=== PATIENT | female | born 1970 | race Caucasian/White ===

== ENCOUNTER 2017-10-19 02:20 | Inpatient (IN) | payer MEDICARE ==
--- NOTE | 2017-10-19 03:21 | ED ---
Chest Pain HPI - General Chief Complaint: Chest Pain Stated Complaint: Chest Pain Time Seen by Provider: 10/19/17 02:30 Source: EMS Mode of arrival: EMS Limitations: no limitations - History of Present Illness Initial Comments: This patient is a 47-year-old woman with history of previous stent placement, who presented to outside hospital to be evaluated for chest pain. She states the pain had started a month ago and she was not really finding anything that relieves it, but it became worse in the morning on 10/18/2017. Complaint: chest pain Onset/Timin -: month(s) Onset: during rest Pain Location: substernal Pain Radiation: none Severity: severe Quality: other (crushing and burning) Consistency: constant Improves With: medication-other (Dilaudid) Worsens With: other (Taking her home medication) Treatments Prior to Arrival: aspirin, nitroglycerin, oxygen, other (Dilaudid) - Related Data Allergies Allergy/AdvReac Type Severity Reaction Status Date / Time Penicillins Allergy Rash/Hives Verified 10/19/17 02:37 Review of Systems ROS Statement: Those systems with pertinent positive or pertinent negative responses have been documented in the HPI. ROS Other: All systems not noted in ROS Statement are negative. Constitutional: Denies: fever, chills Respiratory: Denies: cough, dyspnea Cardiovascular: Reports: chest pain. Denies: palpitations, orthopnea, edema, syncope Gastrointestinal: Denies: abdominal pain, nausea, vomiting Musculoskeletal: Denies: back pain Skin: Denies: rash Neurological: Reports: headache. Denies: weakness, numbness EKG Findings - EKG Comments: EKG Findings:: The patient's EKG does appear to show elevation in the ST segments lead V2 of less than 1 mm - EKG Results: EKG: interpreted by ERMD, sinus rhythm (Rate approximate 77 bpm), normal axis, normal QRS Past Medical History Past Medical History: Chest Pain / Angina, Fibromyalgia, GERD/Reflux, Renal Disease Additional Past Medical History / Comment(s): Lupus, rhaynauds, Sjrogens syndrome, chronic pain, headaches, History of Any Multi-Drug Resistant Organisms: None Reported Past Surgical History: Heart Catheterization With Stent Past Psychological History: Anxiety, Depression Smoking Status: Current every day smoker Past Alcohol Use History: None Reported Past Drug Use History: None Reported General Exam Limitations: no limitations General appearance: alert, in no apparent distress Head exam: Present: atraumatic, normocephalic Eye exam: Present: normal appearance. Absent: scleral icterus, conjunctival injection ENT exam: Present: normal oropharynx Neck exam: Present: normal inspection, full ROM Respiratory exam: Present: normal lung sounds bilaterally, chest wall tenderness. Absent: respiratory distress, wheezes, rales, rhonchi, stridor, accessory muscle use, decreased breath sounds, prolonged expiratory Cardiovascular Exam: Present: regular rate, normal rhythm, normal heart sounds. Absent: systolic murmur, diastolic murmur, rubs, gallop GI/Abdominal exam: Present: soft. Absent: distended, tenderness, guarding, rebound, rigid, mass Extremities exam: Present: normal inspection, normal capillary refill. Absent: pedal edema, calf tenderness Back exam: Present: normal inspection. Absent: CVA tenderness (R), CVA tenderness (L) Skin exam: Present: warm, dry, intact, normal color. Absent: rash Course Vital Signs 10/19/17 10/19/17 02:29 05:05 Temperature 100.0 F H 97.7 F Pulse Rate 77 77 Respiratory 18 18 Rate Blood Pressure 131/92 116/70 O2 Sat by Pulse 96 98 Oximetry Chest Pain MDM - MDM Patient's 47-year-old woman with borderline troponins and with EKG with a concerning changes in V2. Case discussed with the blending line attendant's will see the patient. IV heparin continued. Patient chest pain-free following morphine. Disposition Clinical Impression: Chest pain, Acute coronary syndrome Disposition: ADMITTED IP TO THIS HOSP Condition: Fair
[2017-10-19] MEDS ORDERED: NITROGLYCERIN SL TABS 0.4 MG TAB SUBLINGUAL PRN ×2 (05:41→09:09)
[2017-10-19] MEDS ORDERED: ENOXAPARIN 80 MG/0.8 ML SYRINGE SQ STA (05:44)
[2017-10-19] MEDS ORDERED: MORPHINE SULFATE 4 MG/ML SYRINGE IV STA (05:57)
[2017-10-19] MEDS: HEPARIN SODIUM,PORCINE/D5W PMX 25,000 UNIT in DEXTROSE/WATER 1 500ML.BAG IV SCH (06:12)
[2017-10-19 06:23] LABS: Basophils % (A) 0 %; Eosinophils % (A) 1 %; HGB 12.8 gm/dL (11.4-16.0); Lymphocytes % (A) 28 %; MCH 27.8 pg (25.0-35.0); MCHC 32.8 g/dL (31.0-37.0); MCV 84.7 fL (80.0-100.0); Mean Platelet Volume 7.4; Monocytes # (A) 0.7 k/uL (0-1.0); Monocytes % (A) 10 %; Neutrophils # (A) 4.2 k/uL (1.3-7.7); Neutrophils % (A) 58 %; Platelet Count 307 k/uL (150-450); WBC 7.2 k/uL (3.8-10.6)
[2017-10-19 06:45] VITALS: RESP 16
[2017-10-19 06:48] LABS: INR 0.9 (<1.2); Partial Thromboplastin Time 20.7 sec (22.0-30.0); Prothrombin Time 9.4 sec (9.0-12.0)
[2017-10-19] MEDS ORDERED: MORPHINE SULFATE 4 MG/ML SYRINGE IV PRN (06:52)
[2017-10-19] MEDS ORDERED: SODIUM CHLORIDE 0.9% 1,000 ML in EMPTY BAG 1 BAG IV ONE (09:09)
[2017-10-19] MEDS ORDERED: ASPIRIN 325 MG TAB PO STA (09:09)
[2017-10-19] MEDS ORDERED: ALPRAZolam 0.25 MG TAB PO PRN (09:09)
[2017-10-19] MEDS ORDERED: ATORVASTATIN 80 MG TAB PO STA (09:09)
[2017-10-19] MEDS ORDERED: ALPRAZolam 0.5 MG TAB PO PRN (09:09)
[2017-10-19 09:15] LABS: Creatine Kinase MB 0.8 ng/mL (0.0-2.4)
[2017-10-19 09:18] LABS: Troponin I 0.08 ng/mL (0.000-0.034)
[2017-10-19] MEDS: METOPROLOL TARTRATE 12.5 MG TAB PO SCH ×2 (10:36→20:14)
[2017-10-19] MEDS: ASPIRIN 81 MG PO SCH (10:37)
[2017-10-19 11:22] VITALS: BMI 27.3
[2017-10-19] MEDS ORDERED: MIDAZOLAM 2 MG/2 ML VIAL ONE (13:08)
[2017-10-19] MEDS ORDERED: diphenhydrAMINE 50 MG/ML 1 ML VIAL ONE (13:08)
[2017-10-19] MEDS ORDERED: IV FLUID CONTINUATION 200 ML IV ONE (13:19)
[2017-10-19] MEDS: MIDAZOLAM 2 MG/2 ML VIAL IVP ONE ×2 (13:19→13:26)
[2017-10-19] MEDS ORDERED: diphenhydrAMINE 50 MG/ML 1 ML VIAL IVP ONE (13:19)
[2017-10-19] MEDS ORDERED: LIDOCAINE 2% INJ 20 MG/ML SQ ONE (13:25)
[2017-10-19] MEDS ORDERED: MORPHINE SULFATE 4 MG/ML SYRINGE ONE (13:29)
--- NOTE | 2017-10-19 13:29 | CONS ---
CONSULTATION This is a 47-year-old lady with a history stenting of her coronary arteries performed in the past. These details are unavailable. She came into the [place] [facility] with almost a 3-week history of ongoing episodes of chest pressure and tightness. She also complained of having some uncomfortable feeling in her chest when she does physical activity and these symptoms got worse yesterday. After arrival in the emergency room at [place], she was then transferred here because of ongoing symptoms and there was a mild elevation of troponin. At the time of my evaluation, she is more comfortable, but there is an increase in troponin. She has history of prior PCI, details of which are not available. PAST MEDICAL HISTORY: 1. CAD with stenting of one of her coronary arteries, details unclear. 2. History of systemic lupus erythematosus, unclear information, unverified diagnosis. 3. She also has fibromyalgia. 4. Also some chronic pain syndrome and headaches. 5. 6. MEDICATIONS: At home include Ativan, Effexor, , Protonix, she does not take an aspirin. She does not take any Plavix and has no statins. ALLERGIES: PENICILLIN. REVIEW OF SYSTEMS: Remarkable for exertional chest tightness occurring more frequently. Nausea. Also has multiple nonspecific sharp pains in the chest and abdomen as well. She has some nausea from time to time. No hematemesis, melena, genitourinary symptoms, fever with chills or cough with expectoration. LABORATORY DATA: Revealed that we have 2 sets of troponins here 0.06 and 0.08, and there was also elevation of troponin in the [facility]. PHYSICAL EXAMINATION: VITAL SIGNS: The blood pressure is 118/70, pulse rate is 70 per minute and regular. HEENT: Unremarkable. Fundus was not examined by me. NECK: Supple. There is no JVD. I do not hear a carotid bruit. There is no thyromegaly. HEART exam reveals S1, S2 heard normally. There is no significant rub, murmur or gallop. LUNGS are clear. ABDOMEN is soft, nontender. EXTREMITIES: Lower extremities reveal normal pulses. No edema. CENTRAL NERVOUS SYSTEM is normal. EKG revealed a sinus mechanism with evidence of old inferior LA and also QS pattern in precordial leads suggestive of old anteroseptal LA. There were isolated PVCs but no acute changes. IMPRESSION: 1. Probable non ST elevation myocardial infarction in a patient with known prior PCI. 2. Fibromyalgia. 3. History of lupus, details unclear. 4. History of PCI a few years ago details unavailable. RECOMMENDATIONS: Patient was supposed to be given a dose of Lovenox yesterday but this did not happen instead she is on a heparin drip. We will continue the heparin drip. I will add beta blockers and statin agents and aspirin 81 mg daily. I am recommending coronary angiography given her symptoms and EKG changes and also elevated troponin. Rationale, risks, benefits and options were explained to the patient. She understands all details and wishes to proceed with the procedure. MMODL / IJN: [id number] /
[2017-10-19] MEDS ORDERED: MORPHINE SULFATE 4 MG/ML SYRINGE IVP ONE (13:31)
[2017-10-19] MEDS ORDERED: SODIUM CHLORIDE 0.9% 1,000 ML IV ONE (13:32)
[2017-10-19] MEDS ORDERED: IOPAMIDOL-370 100ML BTL INJ ONE (13:39)
[2017-10-19] MEDS ORDERED: NITROGLYCERIN SL TABS 0.4 MG TAB SUBLINGUAL ONE (13:41)
[2017-10-19] MEDS ORDERED: RX INFO: IV CONTRAST WAS GIVEN 1 EACH MISC MISCELLANE PRN (13:54)
[2017-10-19] MEDS ORDERED: MD COMMUNICATION TO PHARMACY 1 EACH MISC PO ONE (14:27)
[2017-10-19] MEDS: SODIUM CHLORIDE 0.9% 1,000 ML IV SCH (14:55)
--- NOTE | 2017-10-19 15:48 | P.GSCN ---
History of Present Illness Consult date: 10/19/17 Reason for Consult: Severe coronary artery disease with left main disease, non-STEMI, recommendations for surgical revascularization. Requesting physician: Tho José History of present illness: This is a 47-year-old female patient who follows with Dr. Alexis Fan on an outpatient basis. She has a previous medical history of myocardial infarction at 40 years old with stent placement to the LAD and RCA, hypertension , hyperlipidemia, current smoker with vape, lupus, fibromyalgia, Raynauds disease, GERD, depression, marijuana oil use, acute kidney injury without dialysis requirement, seizures, syncope, and significant family history of early coronary artery disease with several men in her family dying before the age of 50. She was having chest pain intermittently over the previous month which she initially thought was pleurisy and she treated with prednisone she had at home. The chest pain became intense enough in the last 24 hours however that she felt she needed to report to the emergency room. She went to [facility] emergency room with complaints of severe crushing, burning, substernal chest pain without radiation and with mild nausea. It was improved with IV Dilaudid at [facility]. Troponins were drawn which were mildly elevated and the patient was transported to [facility] for further evaluation and treatment. She was admitted, started on heparin drip, troponins continue to be elevated although her EKG demonstrated no acute changes , and she was ruled in for non-STEMI. She was taken to the cardiac labor economist this morning by Dr. Joshi and was found to have left main stenosis 80%, patent RCA stent, proximal LAD stenosis 100%, PDA stenosis of 70% at the ostium, and circumflex artery with 80% stenosis. Left ventriculogram was completed which demonstrated an ejection fraction of 40%. Dr. José from cardiothoracic surgery was consulted regarding recommendations for surgical revascularization. Review of Systems 14 point review systems was completed and was negative except as noted. - Cardiovascular Reports as per HPI, Reports chest pain, Reports lightheadedness, Reports syncope - Musculoskeletal Musculoskeleta Comment(s): Chronic pain all over from fibromyalgia Past Medical History Past Medical History: Coronary Artery Disease (CAD), Chest Pain / Angina, Fibromyalgia, GERD/Reflux, Hyperlipidemia, Hypertension, Myocardial Infarction ( [place]), Renal Disease, Seizure Disorder, Syncope Additional Past Medical History / Comment(s): Lupus, rhaynauds, Sjrogens syndrome, chronic pain, headaches, seizures & kidney failure in 1999 now resolved, HELPP syndrome during History of Any Multi-Drug Resistant Organisms: None Reported Past Surgical History: Heart Catheterization With Stent, Hernia Repair, Hysterectomy Additional Past Surgical History / Comment(s): 2009 2 stents to LAD, hysterectomy, double umbilical hernia repair, pin in right ankle, cyst removal on right ovary Past Anesthesia/Blood Transfusion Reactions: No Reported Reaction Date of Last Stent Placement:: 2009 Past Psychological History: Depression Smoking Status: Current every day smoker Past Alcohol Use History: None Reported Past Drug Use History: Marijuana Additional Drug Use History / Comment(s): Uses marijuana oil - Past Family History Mother Family Medical History: Diabetes Mellitus Father Family Medical History: Coronary Artery Disease (CAD) Medications and Allergies Home Medications Medication Instructions Recorded Confirmed Type LORazepam [Ativan] 0.5 mg PO TID PRN 10/19/17 10/19/17 History Nitroglycerin [Nitroglycerin 1 spray TRANSLINGU DAILY PRN 10/19/17 10/19/17 History 400MCG [place]] Pantoprazole Sodium [Protonix] 80 mg PO HS 10/19/17 10/19/17 History Pilocarpine HCl [Salagen] 5 mg PO TID PRN 10/19/17 10/19/17 History Topiramate [Topamax] 100 mg PO HS 10/19/17 10/19/17 History Venlafaxine HCl ER [Effexor Xr] 150 mg PO HS 10/19/17 10/19/17 History rOPINIRole HCL [Requip] 3 mg PO HS 10/19/17 10/19/17 History traZODone HCL 300 mg PO HS 10/19/17 10/19/17 History Allergies Allergy/AdvReac Type Severity Reaction Status Date / Time Penicillins Allergy Rash/Hives Verified 10/19/17 11:25 Surgical - Exam Vital Signs Temp Pulse Resp BP Pulse Ox 100.0 F H 77 18 131/92 96 10/19/17 02:29 10/19/17 02:29 10/19/17 02:29 10/19/17 02:29 10/19/17 02:29 - General well developed, well nourished, no distress, no pain - Eyes PERRL, normal ocular movement - ENT no hearing loss, no congestion - Neck no masses, no bruits, trachea midline - Respiratory Lungs sounds clear bilaterally. Respirations even, nonlabored. Currently on room air with oxygen saturation 98%. No chest wall deformities. - Cardiovascular S1, S2 present. Regular rate and rhythm, sinus rhythm on telemetry. Palpable peripheral pulses bilaterally. No edema present. No calf pain or tenderness noted. Few varicosities noted to right lower extremity. - Abdomen Abdomen: soft, non tender, bowel sounds - Genitourinary Deferred - Rectum Deferred - Integumentary no rash, no growths - Neurologic normal coordination, normal sensation - Psychiatric oriented to time, oriented to person, oriented to place, speech is normal, memory intact Results - Labs 10/19/17 06:08 Abnormal Lab Results - Last 24 Hours (Table) 10/19/17 10/19/17 10/19/17 Range/Units 02:48 06:08 08:15 APTT 20.7 L (22.0-30.0) sec Troponin I 0.065 H* 0.080 H* (0.000-0.034) ng/mL - Imaging EKG: image reviewed Additional studies: Cardiac catheterization films were reviewed. Assessment and Plan (1) Coronary artery disease Current Visit: Yes Status: Chronic Code(s): I25.10 - ATHSCL HEART DISEASE OF [place] CORONARY ARTERY W/O ANG PCTRS SNOMED Code(s): 68535323 (2) Left main coronary artery disease Current Visit: Yes Status: Chronic Code(s): I25.10 - ATHSCL HEART DISEASE OF [place] CORONARY ARTERY W/O ANG PCTRS SNOMED Code(s): 683458735 (3) Previous myocardial infarction older than 8 weeks Current Visit: No Status: Resolved Code(s): I25.2 - OLD MYOCARDIAL INFARCTION SNOMED Code(s): 9620377 (4) History of heart artery stent Current Visit: Yes Status: Chronic Code(s): Z95.5 - PRESENCE OF CORONARY ANGIOPLASTY IMPLANT AND GRAFT SNOMED Code(s): 581788657 (5) Hypertension Current Visit: Yes Status: Chronic Code(s): I10 - ESSENTIAL (PRIMARY) HYPERTENSION SNOMED Code(s): 22555566 (6) Hyperlipidemia Current Visit: Yes Status: Chronic Code(s): E78.5 - HYPERLIPIDEMIA, UNSPECIFIED SNOMED Code(s): 58688345 (7) GERD (gastroesophageal reflux disease) Current Visit: Yes Status: Chronic Code(s): K21.9 - GASTRO-ESOPHAGEAL REFLUX DISEASE WITHOUT ESOPHAGITIS SNOMED Code(s): 743137313 (8) Lupus Current Visit: Yes Status: Chronic Code(s): L93.0 - DISCOID LUPUS ERYTHEMATOSUS SNOMED Code(s): 146688180 (9) Depression Current Visit: Yes Status: Chronic Code(s): F32.9 - MAJOR DEPRESSIVE DISORDER, SINGLE EPISODE, UNSPECIFIED SNOMED Code(s): 42895722 (10) History of kidney injury Current Visit: No Status: Resolved Code(s): Z87.828 - PERSONAL HISTORY OF OTH (HEALED) PHYSICAL INJURY AND TRAUMA SNOMED Code(s): 041837880 (11) History of seizure disorder Current Visit: No Status: Resolved Code(s): Z86.69 - PERSONAL HISTORY OF DIS OF THE NERVOUS SYS AND SENSE ORGANS SNOMED Code(s): 415860095 (12) History of syncope Current Visit: No Status: Resolved Code(s): Z87.898 - PERSONAL HISTORY OF OTHER SPECIFIED CONDITIONS SNOMED Code(s): 639299012488968 (13) Family history of premature coronary artery disease Current Visit: Yes Status: Chronic Code(s): Z82.49 - FAMILY HX OF I[place]HE[place] HEART DIS AND OTH DIS OF THE CIRC SYS SNOMED Code(s): 015039501 (14) Tobacco dependence Current Visit: Yes Status: Chronic Code(s): F17.200 - NICOTINE DEPENDENCE, UNSPECIFIED, UNCOMPLICATED SNOMED Code(s): 66896720 Plan: The patient was seen and examined at the bedside with Dr. José. Chart/ diagnostics/heart catheterization films were reviewed. We recommend continuing aspirin, statin, beta lis, heparin drip. We strongly encouraged the patient to quit smoking, including vaping. Preoperative testing was initiated. Preoperative teaching was initiated with the patient and her , all questions were answered. At this point time we recommend urgent coronary artery bypass grafting with the left internal mammary artery, right internal mammary artery, possible radial artery harvesting, and endoscopic vein harvesting. All risks and benefits were explained in detail to the patient and her . All questions were answered. They consent to proceed with surgery. We will tentatively board the patient for October [address] Mclaughlin, pending the outcome of preoperative testing. More recommendations to follow. Thank you Dr. Joshi for this consult. We look forward to working with you in the care of your patient. Time with Patient: Greater than 30
[2017-10-19] MEDS: MORPHINE SULFATE 4 MG/ML SYRINGE IV PRN ×2 (15:49→23:25)
[2017-10-19 16:04] LABS: Creatine Kinase MB 0.4 ng/mL (0.0-2.4)
[2017-10-19 16:06] LABS: Troponin I 0.066 ng/mL (0.000-0.034)
--- NOTE | 2017-10-19 16:56 | P.CNPUL ---
History of Present Illness Consult date: 10/19/17 Reason for consult: other Chief complaint: Coronary artery disease History of present illness: Pulmonary consult dated 10/19/2017 This a 47-year-old female with a history of coronary artery disease with previous stent placement. She presented to an outside hospital for chest pain. She apparently was discovered have significant CAD and the patient's being evaluated for possible bypass grafting. The plan would be to do the bypass on Friday which is the day after . The patient is currently not having any chest pain. She does have a history of previous tobacco use and she does currently vape. She does have a history of lupus though she does not take any medications for her lupus at this time. She currently denies any shortness of breath cough wheezing phlegm production hemoptysis. No chest pain or chest pressure currently. No palpitations. Currently, there is no calf report to refer to. She apparently does have a history of CAD with stenting. She also has a history of lupus and fibromyalgia with chronic pain syndrome. She apparently also has a history of Raynauds disease as well as Sjogren's syndrome. Review of Systems A 12 point review of system is positive for chest pain. She denies other complaints and she is not having any chest pain at the current time. Past Medical History Past Medical History: Coronary Artery Disease (CAD), Chest Pain / Angina, Fibromyalgia, GERD/Reflux, Hyperlipidemia, Hypertension, Myocardial Infarction ( [place]), Renal Disease, Seizure Disorder, Syncope Additional Past Medical History / Comment(s): Lupus, rhaynauds, Sjrogens syndrome, chronic pain, headaches, seizures & kidney failure in 1999 now resolved, HELPP syndrome during History of Any Multi-Drug Resistant Organisms: None Reported Past Surgical History: Heart Catheterization With Stent, Hernia Repair, Hysterectomy Additional Past Surgical History / Comment(s): 2009 2 stents to LAD, hysterectomy, double umbilical hernia repair, pin in right ankle, cyst removal on right ovary Past Anesthesia/Blood Transfusion Reactions: No Reported Reaction Date of Last Stent Placement:: 2009 Past Psychological History: Depression Smoking Status: Current every day smoker Past Alcohol Use History: None Reported Past Drug Use History: Marijuana Additional Drug Use History / Comment(s): Uses marijuana oil - Past Family History Mother Family Medical History: Diabetes Mellitus Father Family Medical History: Coronary Artery Disease (CAD) Medications and Allergies Home Medications Medication Instructions Recorded Confirmed Type LORazepam [Ativan] 0.5 mg PO TID PRN 10/19/17 10/19/17 History Nitroglycerin [Nitroglycerin 1 spray TRANSLINGU DAILY PRN 10/19/17 10/19/17 History 400MCG [place]] Pantoprazole Sodium [Protonix] 80 mg PO HS 10/19/17 10/19/17 History Pilocarpine HCl [Salagen] 5 mg PO TID PRN 10/19/17 10/19/17 History Topiramate [Topamax] 100 mg PO HS 10/19/17 10/19/17 History Venlafaxine HCl ER [Effexor Xr] 150 mg PO HS 10/19/17 10/19/17 History rOPINIRole HCL [Requip] 3 mg PO HS 10/19/17 10/19/17 History traZODone HCL 300 mg PO HS 10/19/17 10/19/17 History Allergies Allergy/AdvReac Type Severity Reaction Status Date / Time Penicillins Allergy Rash/Hives Verified 10/19/17 11:25 Physical Exam Osteopathic Statement: *. No significant issues noted on an osteopathic structural exam other than those noted in the History and Physical/Consult. Vitals: Vital Signs Temp Pulse Pulse Resp BP BP Pulse Ox 10/19/17 15:20 73 16 99/67 98 10/19/17 14:50 76 110/76 97 10/19/17 14:35 74 113/83 99 10/19/17 14:20 74 16 133/71 99 10/19/17 14:05 98 16 128/69 99 10/19/17 12:10 98 F 73 16 101/65 98 10/19/17 10:05 98 F 70 16 104/71 99 10/19/17 06:44 97.4 F L 73 16 123/84 99 10/19/17 05:05 97.7 F 77 18 116/70 98 10/19/17 02:29 100.0 F H 77 18 131/92 96 Intake and Output 10/19/17 10/19/17 10/19/17 06:59 14:59 22:59 Intake Total 340.76 Balance 340.76 Intake: IV 170 Intake, IV Titration 170.76 Amount Heparin Sodium,Porcine/ 170.76 D5w Pmx 25,000 unit In Dextrose/Water 1 500ml. bag @ 12 UNITS/KG/HR 19. 59 mls/hr IV .Q24H [facility] Rx #:[id number] Other: Weight 81.647 kg 81.647 kg No acute distress, oriented 3. HEENT examination is grossly unremarkable. Mucous membranes are moist. No oral lesions. Neck supple. Full range of motion. No adenopathy thyromegaly or neck vein distention. Cardiovascular examination reveals regular rhythm rate. S1-S2 normal. No S3 or S4. No discernible murmur noted. Lungs reveal clear breath sounds. Her sounds are equal bilaterally. No adventitious lung sounds including wheezes rhonchi or crackles. Abdomen soft bowel sounds are heard. No masses or tenderness. Extremities are intact. No cyanosis clubbing or edema. Skin is without rash or lesion. Neurologic examination is brief but nonfocal. Results - Laboratory Findings CBC and BMP: 10/19/17 06:08 PT/INR, D-dimer PT 9.4 sec (9.0-12.0) 10/19/17 06:08 INR 0.9 (<1.2) 10/19/17 06:08 Abnormal lab findings: Abnormal Labs 10/19/17 10/19/17 10/19/17 02:48 06:08 08:15 APTT 20.7 L Troponin I 0.065 H* 0.080 H* 10/19/17 14:54 APTT Troponin I 0.066 H* - Diagnostic Findings Chest x-ray: image reviewed (Labs x-rays and medications are reviewed.) Assessment and Plan Assessment: Assessment Coronary artery disease with anticipated bypass grafting on October 21. Catheterization revealed a left main stenosis of 80% and a patent RCA stent proximal LAD stenosis 100% PDA stenosis of 70% and circumflex artery stenosis of 80%. Ejection fraction by ventriculogram was 40%. Non-ST segment elevation myocardial infarction. History of lupus, currently on no medications History of angina Previous history of stent placement for CAD, right coronary artery. History of fibromyalgia History of GERD History of Sjogren syndrome History of Raynaud's disease Plan: Plan dated 10/19/2017 The patient will need a bedside spirometry. We counseled her about the importance of not using E cigarettes anymore. She just stopped smoking cigarettes many years back. I explained my role in the care of that she will receive in the ICU. We will make sure the nurses educate her about the importance of incentive spirometry. Additional recommendations and suggestions to follow. Time with Patient: Greater than 30
--- NOTE | 2017-10-19 17:16 | US ---
EXAMINATION TYPE: US carotid duplex BILAT DATE OF EXAM: 10/19/2017 COMPARISON: NONE CLINICAL HISTORY: Pre CABG. EXAM MEASUREMENTS: RIGHT: Peak Systolic Velocity (PSV) cm/sec ----- Right CCA: 70.6 ----- Right ICA: 93.3 ----- Right ECA: 87.9 ICA/CCA ratio: 1.3 RIGHT: End Diastole cm/sec ----- Right CCA: 21.7 ----- Right ICA: 20.8 ----- Right ECA: 24.5 LEFT: Peak Systolic Velocity (PSV) cm/sec ----- Left CCA: 85.6 ----- Left ICA: 76.8 ----- Left ECA: 267.6 ICA/CCA ratio: 0.9 LEFT: End Diastole cm/sec ----- Left CCA: 43.9 ----- Left ICA: 37.3 ----- Left ECA: 44.3 VERTEBRALS (direction of flow): Right Vertebral: Antegrade Left Vertebral: Antegrade Rhythm: Normal No significant stenosis seen. Elevated left ECA velocity IMPRESSION: 1. No significant flow-limiting stenosis common carotid arteries into the internal carotid arteries. 2. There is stenosis at the left external carotid artery. Criteria for Assigning % of Stenosis / Diameter reduction (Estimation based on the indirect measurements of the internal carotid artery velocities (ICA PSV). 1. Normal (no stenosis)=ICA PSV < 125 cm/s: ratio < 2.0: ICA EDV<40 cm/s. 2. Less than 50% stenosis=ICA PSV < 125 cm/s: ratio < 2.0: ICA EDV<40 cm/s. 3. 50 to 69% stenosis=ICA PSV of 125 to 230 cm/s: ration 2.0 ? 4.0: ICA EDV 40-100 cm/s. 4. Greater than 70% stenosis to near occlusion= ICA PSV > 230 cm/s: ratio > 4.0: ICA EDV > 100 cm/s. 5. Near occlusion= ICA PSV velocities may be low or undetectable: variable ratio and ICA EDV. 6. Total occlusion=unable to detect flow.
[2017-10-19 18:23] LABS: Appearance,Urine Clear (Clear); Bilirubin,Urine Negative (Negative); Blood,Urine Trace (Negative); Color,Urine Light Yellow; Glucose,Urine (UA) Negative (Negative); Ketones,Urine Negative (Negative); Leukocyte Esterase,Urine Large (Negative); Nitrite,Urine Negative (Negative); PH, Urine 6.5 (5.0-8.0); Protein,Urine Negative (Negative); RBC,Urine 2 /hpf (0-5); Squamous Epithelial Cell,Urine 2 /hpf (0-4); Urobilinogen,Urine <2.0 mg/dL (<2.0); WBC,Urine 2 /hpf (0-5)
--- NOTE | 2017-10-19 18:34 | P.HPIM ---
History of Present Illness this is a pleasant 47 yo F with pmh of HTN, HLP, CAD, Fibromyalgia, seizure , GERD, HLP, syncope, Raynauds disease ,Sjogren's syndrome and Lupus but not on therapy who presents with signs and symptoms of chest pain of two days duration , the pain is central , associated with some dyspnea , pt was found to have positive troponin 0.6, 0.8,0.6 , pt was taking to cardiac cath today and it showed three vessel disease and main stem coronary art disease , and she might needs cath on Friday. pt currently denies any chest pain , no palpitation or dyspnea. pt does not have any fever. carotid doppler done: no significant stenosis, Review of Systems CONSTITUTIONAL: No fever, no malaise, no fatigue. HEENT: No recent visual problems or hearing problems. Denied any sore throat. CARDIOVASCULAR: No orthopnea, PND, no palpitations, no syncope. PULMONARY: No shortness of breath, no cough, no hemoptysis. GASTROINTESTINAL: No diarrhea, no nausea, no vomiting, no abdominal pain. Normoactive bowel sounds. NEUROLOGICAL: No headaches, no weakness, no numbness. HEMATOLOGICAL: Denies any bleeding or petechiae. GENITOURINARY: Denies any burning micturition, frequency, or urgency. MUSCULOSKELETAL/RHEUMATOLOGICAL: Denies any joint pain, swelling, or any muscle pain. ENDOCRINE: Denies any polyuria or polydipsia. Past Medical History Past Medical History: Coronary Artery Disease (CAD), Chest Pain / Angina, Fibromyalgia, GERD/Reflux, Hyperlipidemia, Hypertension, Myocardial Infarction ( [place]), Renal Disease, Seizure Disorder, Syncope Additional Past Medical History / Comment(s): Lupus, rhaynauds, Sjrogens syndrome, chronic pain, headaches, seizures & kidney failure in 1999 now resolved, HELPP syndrome during History of Any Multi-Drug Resistant Organisms: None Reported Past Surgical History: Heart Catheterization With Stent, Hernia Repair, Hysterectomy Additional Past Surgical History / Comment(s): 2009 2 stents to LAD, hysterectomy, double umbilical hernia repair, pin in right ankle, cyst removal on right ovary Past Anesthesia/Blood Transfusion Reactions: No Reported Reaction Date of Last Stent Placement:: 2009 Past Psychological History: Depression Smoking Status: Current every day smoker Past Alcohol Use History: None Reported Past Drug Use History: Marijuana Additional Drug Use History / Comment(s): Uses marijuana oil - Past Family History Mother Family Medical History: Diabetes Mellitus Father Family Medical History: Coronary Artery Disease (CAD) Medications and Allergies Home Medications Medication Instructions Recorded Confirmed Type LORazepam [Ativan] 0.5 mg PO TID PRN 10/19/17 10/19/17 History Nitroglycerin [Nitroglycerin 1 spray TRANSLINGU DAILY PRN 10/19/17 10/19/17 History 400MCG [place]] Pantoprazole Sodium [Protonix] 80 mg PO HS 10/19/17 10/19/17 History Pilocarpine HCl [Salagen] 5 mg PO TID PRN 10/19/17 10/19/17 History Topiramate [Topamax] 100 mg PO HS 10/19/17 10/19/17 History Venlafaxine HCl ER [Effexor Xr] 150 mg PO HS 10/19/17 10/19/17 History rOPINIRole HCL [Requip] 3 mg PO HS 10/19/17 10/19/17 History traZODone HCL 300 mg PO HS 10/19/17 10/19/17 History Allergies Allergy/AdvReac Type Severity Reaction Status Date / Time Penicillins Allergy Rash/Hives Verified 10/19/17 11:25 Physical Exam Vitals: Vital Signs Temp Pulse Pulse Resp BP BP Pulse Ox 10/19/17 16:50 72 16 98/60 98 10/19/17 15:50 74 16 106/67 97 10/19/17 15:20 73 16 99/67 98 10/19/17 14:50 76 110/76 97 10/19/17 14:35 74 113/83 99 10/19/17 14:20 74 16 133/71 99 10/19/17 14:05 98 16 128/69 99 10/19/17 12:10 98 F 73 16 101/65 98 10/19/17 10:05 98 F 70 16 104/71 99 10/19/17 06:44 97.4 F L 73 16 123/84 99 10/19/17 05:05 97.7 F 77 18 116/70 98 10/19/17 02:29 100.0 F H 77 18 131/92 96 Intake and Output 10/19/17 10/19/17 10/19/17 06:59 14:59 22:59 Intake Total 1100.76 Balance 1100.76 Intake: IV 930 Heparin Sodium,Porcine/ 160 D5w Pmx 25,000 unit In Dextrose/Water 1 500ml. bag @ 12 UNITS/KG/HR 19. 59 mls/hr IV .Q24H [facility] Rx #:[id number] Sodium Chloride 0.9% 1, 600 000 ml @ 75 mls/hr IV . [id number] [facility] Rx#:[id number] Intake, IV Titration 170.76 Amount Heparin Sodium,Porcine/ 170.76 D5w Pmx 25,000 unit In Dextrose/Water 1 500ml. bag @ 12 UNITS/KG/HR 19. 59 mls/hr IV .Q24H [facility] Rx #:[id number] Other: Weight 81.647 kg 81.647 kg GENERAL: The patient is alert and oriented x3, not in any acute distress. Well developed, well nourished. HEENT: Pupils are round and equally reacting to light. EOMI. No scleral icterus. No conjunctival pallor. Normocephalic, atraumatic. No pharyngeal erythema. No thyromegaly. CARDIOVASCULAR: S1 and S2 present. No murmurs, rubs, or gallops. PULMONARY: Chest is clear to auscultation, no wheezing or crackles. ABDOMEN: Soft, nontender, nondistended, normoactive bowel sounds. No palpable organomegaly. Small abdominal wall lump close to the umbilicus with a smooth borders and mobile, nontender MUSCULOSKELETAL: No joint swelling or deformity. EXTREMITIES: No cyanosis, clubbing, or pedal edema. NEUROLOGICAL: Gross neurological examination did not reveal any focal deficits. SKIN: No rashes. Results CBC & Chem 7: 10/19/17 06:08 Labs: Abnormal Lab Results - Last 24 Hours (Table) 10/19/17 10/19/17 10/19/17 Range/Units 02:48 06:08 08:15 APTT 20.7 L (22.0-30.0) sec Troponin I 0.065 H* 0.080 H* (0.000-0.034) ng/mL 10/19/17 Range/Units 14:54 APTT (22.0-30.0) sec Troponin I 0.066 H* (0.000-0.034) ng/mL Thrombosis Risk Factor Assmnt - Choose All That Apply Any of the Below Risk Factors Present?: Yes Each Factor Represents 1 point: Age 41-60 years, Medical pt on bed rest Other Risk Factors: Yes Each Risk Factor Represents 2 Points: Patient confined to bed Other congenital or acquired thrombophilia - If yes, enter type in comment: No Thrombosis Risk Factor Assessment Total Risk Factor Score: 4 Thrombosis Risk Factor Assessment Level: Moderate Risk Assessment and Plan Assessment: -Non-STEMI, s/p cardiac cath -h/o CAD, with family h/o premature CAD -h/o Lupus -HTN -HLP -Fibromyalgia -seizure -GERD -HLP -syncope -Raynauds disease -Sjogren's syndrome Plan: pt to be admitted to the general medical floor,cardilogy and pulmonary team evaluated the pt , pt was started on heprin drip and then she was taken to cardiac cath today on 10/19 showing multiple vessel disease: left main a (80%), LAD(100%), Circumflex a (80%), pt might need surgical intervention for her diseased coronaries.monitor lytes and vitals, she is on metoprolol , asa and statin, c/w symptomatic treatment.c/w incentive spirometery. DVT and GI prophylaxis, counseled about quitting vape, she quit smoking many years ago. consult vascular team for evaluation prognosis remains guarded
[2017-10-19] MEDS: HEPARIN SODIUM,PORCINE 5,000 UNIT/ML 1 ML VIAL IV PRN (20:13)
[2017-10-19] MEDS: MUPIROCIN 2% OINT 22 GM TUBE NASAL SCH (20:14)
[2017-10-19] MEDS ORDERED: PILOCARPINE 5 MG TAB PO PRN (20:26)
--- NOTE | 2017-10-19 20:44 | CC ---
CARDIAC CATHETERIZATION REPORT DATE OF SERVICE: 10/19/2017. PROCEDURE: Left heart catheterization and coronary angiography. PERFORMED BY: Dr. Suzette Joshi. ANESTHESIA: Moderate conscious sedation time was 20 minutes. Patient was given Versed morphine and Benadryl and was monitored with EKG, oxygen saturation and hemodynamics. CLINICAL INFORMATION: Mrs. Talia Rowan is a 47-year-old lady with a diagnosis of fibromyalgia, lupus erythematosus, chronic pain syndrome, uses marijuana, which is medical marijuana, also has history of prior myocardial infarction and 2 vessel PCI, details of which are not available. Apparently in 2008 or 2009 she underwent multivessel stenting in [facility]. She presented to [facility] with chest pain and had a troponin elevation. After arrival here, the troponin profile suggested non ST elevation ND and patient has exertional chest tightness, pressure and shortness of breath. She was therefore advised cardiac catheterization. Risks, benefits, options, rationale were explained to the patient. She understood all details and wished to proceed. PROCEDURE NOTE: Under local anesthesia and strict aseptic precautions, a 6-Kazakh introducer was placed in the right femoral artery. Standard Kvng catheters were used to perform coronary angiography and a pigtail catheter was used to check LV pressures and LV-gram was performed in 30 degree FOSTER projection. Next, the sheath was taken out and Angio-Seal device used to secure hemostasis and she was sent to the room in a stable condition. Results were discussed with the patient but her was not available. CARDIAC CATHETERIZATION FINDINGS: The left ventricle end-diastolic pressure was 22 mmHg without any gradient across aortic valve. CORONARY ARTERY FINDINGS: RIGHT CORONARY ARTERY: Technically dominant vessel proximally has about a 35% narrowing. There is a stented segment which is widely patent and beyond the stented segment the vessel bifurcates into PDA and PLV. PDA is a smaller vessel, has about 80% stenosis located right at the ostium as it comes off from the main right coronary artery. The PLV branch is free of significant disease. The PDA branch provides collaterals to the distal LAD. The RCA therefore is a dominant vessel with 35% to 40% proximal lesion and a 70% PDA lesion. LEFT MAIN CORONARY ARTERY: This is a short patent vessel which has about a 80% stenosis in the distal portion just before bifurcation. There is mild calcification noted. There is also some haziness in the distal left main and bifurcates into LAD and circumflex. LEFT ANTERIOR DESCENDING CORONARY ARTERY: This vessel is totally occluded and is seen as a stump after the origin of the diagonal branch. The diagonal branch bifurcates into 2 small branches and at its origin the diagonal has a 70% stenosis. LAD therefore is occluded in the midportion after diagonal branch. Very little antegrade flow is noted but some of the LAD seems to fill by collaterals and also distal LAD reconstitutes very slowly. There is a long stented segment noted. The diagonal is a 2.0 caliber vessel divides into 2 branches, but is probably graftable. LEFT POSTERIOR CIRCUMFLEX CORONARY ARTERY: Nondominant vessel proximally has mild haziness, gives off a groove branch and then continues as an obtuse marginal. At the origin of the groove branch, there is a 70-80% stenosis noted in the circumflex vessel. The circumflex marginal is graftable and this is a very significantly diseased vessel. LEFT VENTRICULOGRAM: This was performed in 30 degree FOSTER projection and revealed left ventricle which is slightly enlarged with anteroapical hypokinesia. Estimated ejection fraction of 40-45% without mitral regurgitation. Inferior wall contracts very well. FINAL IMPRESSION: This patient has elevated filling pressures, right dominant system with a 40% proximal RCA stenosis, patent stent in the RCA and PDA has a 70% stenosis and is a fair caliber vessel. The left main has a 70% stenosis with haziness. The LAD is 100% occluded after the diagonal branch which appears to be graftable but small in caliber. Circumflex has a 70-80% stenosis and nondominant graftable vessel. Left ventricular function is impaired and is about 45% with anteroapical hypokinesia. RECOMMENDATIONS: I am recommending aortocoronary bypass surgery with graft to the LAD if possible, major diagonal, circumflex marginal and PDA branch of RCA. Findings were discussed with the patient in detail. There was no family available. Her was not in the waiting room. After multiple calls, I have advised that I will see him tomorrow. I am recommending aortocoronary bypass surgery and Dr. José will see the patient today. MMBRENNENL / LULN: [id number] /
[2017-10-19] MEDS ORDERED: ATORVASTATIN 20 MG TAB PO SCH (21:00)
[2017-10-19] MEDS: VENLAFAXINE HCL ER 150 MG CAP PO SCH (21:35)
[2017-10-19] MEDS: PANTOPRAZOLE 40 MG TABLET PO SCH (21:35)
[2017-10-19] MEDS: traZODone HCL 100 MG TAB PO SCH (21:35)
[2017-10-19] MEDS: TOPIRAMATE 100 MG TAB PO SCH (21:35)
[2017-10-19] MEDS: LORazepam 0.5 MG TAB PO PRN (21:35)
[2017-10-20 06:33] LABS: Basophils % (A) 1 %; Eosinophils # (A) 0.1 k/uL (0-0.7); Eosinophils % (A) 2 %; HCT 37.8 % (34.0-46.0); HGB 12.3 gm/dL (11.4-16.0); Lymphocytes # (A) 3.5 k/uL (1.0-4.8); Lymphocytes % (A) 46 %; MCHC 32.5 g/dL (31.0-37.0); MCV 86.3 fL (80.0-100.0); Mean Platelet Volume 7.1; Monocytes # (A) 0.6 k/uL (0-1.0); Monocytes % (A) 8 %; Neutrophils % (A) 39 %; Platelet Count 259 k/uL (150-450); RBC 4.38 m/uL (3.80-5.40); RDW 15.4 % (11.5-15.5); WBC 7.6 k/uL (3.8-10.6)
[2017-10-20 06:51] LABS: ALT 21 U/L (9-52); AST 13 U/L (14-36); Alkaline Phosphatase 81 U/L (38-126); Anion Gap 10 mmol/L; Blood Urea Nitrogen 12 mg/dL (7-17); Calcium 8.2 mg/dL (8.4-10.2); Carbon Dioxide 20 mmol/L (22-30); Chloride 111 mmol/L (98-107); Cholesterol 204 mg/dL (<200); Glucose 88 mg/dL (74-99); HDL Cholesterol 63 mg/dL (40-60); LDL Cholesterol,Calculated 112 mg/dL (0-99); Magnesium 1.9 mg/dL (1.6-2.3); Potassium 3.8 mmol/L (3.5-5.1); Sodium 141 mmol/L (137-145); Total Bilirubin 0.3 mg/dL (0.2-1.3); Triglycerides 147 mg/dL (<150)
--- NOTE | 2017-10-20 07:21 | XR ---
EXAMINATION TYPE: XR chest 2V DATE OF EXAM: 10/20/2017 COMPARISON: NONE HISTORY: Preoperative evaluation for CABG. Shortness of breath and chest pain. TECHNIQUE: Frontal and lateral views of the chest are obtained. FINDINGS: There is no focal air space opacity, pleural effusion, or pneumothorax seen. The cardiac silhouette size is within normal limits. The osseous structures are intact. There is minimal acromi oclavicular arthropathy. IMPRESSION: No acute cardiopulmonary process.
[2017-10-20 07:50] LABS: T4, Free (Free Thyroxine) 1.04 ng/dL (0.78-2.19)
[2017-10-20] MEDS: HEPARIN SODIUM,PORCINE/D5W PMX 25,000 UNIT in DEXTROSE/WATER 1 500ML.BAG IV SCH (07:51)
[2017-10-20] MEDS: HEPARIN SODIUM,PORCINE 5,000 UNIT/ML 1 ML VIAL IV PRN (07:52)
[2017-10-20] MEDS: MORPHINE SULFATE 4 MG/ML SYRINGE IV PRN ×3 (07:52→22:14)
[2017-10-20] MEDS: SODIUM CHLORIDE 0.9% 1,000 ML IV SCH (07:53)
[2017-10-20] MEDS ORDERED: ASPIRIN 325 MG TAB PO SCH (09:00)
[2017-10-20] MEDS ORDERED: POTASSIUM CHLORIDE ER 20 MEQ TAB.ER PO STA ×2 (09:46→12:25)
--- NOTE | 2017-10-20 10:47 | P.PN ---
Subjective Progress Note Date: 10/20/17 Principal diagnosis: Coronary artery disease Pulmonary consult dated 10/19/2017 This a 47-year-old female with a history of coronary artery disease with previous stent placement. She presented to an outside hospital for chest pain. She apparently was discovered have significant CAD and the patient's being evaluated for possible bypass grafting. The plan would be to do the bypass on Friday which is the day after . The patient is currently not having any chest pain. She does have a history of previous tobacco use and she does currently vape. She does have a history of lupus though she does not take any medications for her lupus at this time. She currently denies any shortness of breath cough wheezing phlegm production hemoptysis. No chest pain or chest pressure currently. No palpitations. Currently, there is no calf report to refer to. She apparently does have a history of CAD with stenting. She also has a history of lupus and fibromyalgia with chronic pain syndrome. She apparently also has a history of Raynauds disease as well as Sjogren's syndrome. The patient is seen again today 10/20/2017 in follow-up on the selective care unit. She is awake and alert in no acute distress. She is resting quite comfortably in bed. She denies any further chest pain. No shortness of breath , cough or congestion. She is currently maintaining good O2 saturations in the 90s on room air. She's been afebrile. Hemodynamically stable. White count 7.6. Hemoglobin 12.3. Creatinine 0.72. Objective - Vital Signs Vital signs: Vital Signs Temp 97 F L 10/20/17 07:50 Pulse 80 10/20/17 07:50 Resp 16 10/20/17 07:50 BP 94/58 10/20/17 07:50 Pulse Ox 93 L 10/20/17 07:50 Intake & Output 10/19/17 10/20/17 10/20/17 18:59 06:59 18:59 Intake Total 1100.76 1089.240 Output Total 2 Balance 1100.76 1087.240 Weight 81.647 kg 85.4 kg Intake: IV 930 760 Heparin Sodium,Porcine/ 160 160 D5w Pmx 25,000 unit In Dextrose/Water 1 500ml. bag @ 12 UNITS/KG/HR 19. 59 mls/hr IV .Q24H [facility] Rx #:[id number] Sodium Chloride 0.9% 1, 600 600 000 ml @ 75 mls/hr IV . [id number] [facility] Rx#:[id number] Intake, IV Titration 170.76 329.240 Amount Heparin Sodium,Porcine/ 170.76 329.240 D5w Pmx 25,000 unit In Dextrose/Water 1 500ml. bag @ 12 UNITS/KG/HR 19. 59 mls/hr IV .Q24H [facility] Rx #:[id number] Output: Urine 2 Other: Voiding Method Toilet # Voids 2 - Exam GENERAL EXAM: Alert, active, comfortable in no apparent distress. HEAD: Normocephalic. EYES: Normal reaction of pupils, equal size. NOSE: Clear with pink turbinates. THROAT: No erythema or exudates. NECK: No masses, no JVD. CHEST: No chest wall deformity. LUNGS: Equal air entry with no crackles, wheeze, rhonchi or dullness. CVS: S1 and S2 normal with no audible murmur, regular rhythm. ABDOMEN: No hepatosplenomegaly, normal bowel sounds, no guarding or rigidity. SPINE: No scoliosis or deformity SKIN: No rashes CENTRAL NERVOUS SYSTEM: No focal deficits, tone is normal in all 4 extremities. EXTREMITIES: There is no peripheral edema. No clubbing, no cyanosis. Peripheral pulses are intact. - Labs CBC & Chem 7: 10/20/17 06:05 10/20/17 06:05 Labs: Abnormal Lab Results - Last 24 Hours (Table) 10/19/17 10/19/17 10/20/17 Range/Units 14:54 17:30 01:40 APTT 44.8 H (22.0-30.0) sec Chloride (98-107) mmol/L Carbon Dioxide (22-30) mmol/L Calcium (8.4-10.2) mg/dL AST (14-36) U/L Troponin I 0.066 H* (0.000-0.034) ng/mL Total Protein (6.3-8.2) g/dL Albumin (3.5-5.0) g/dL Cholesterol (<200) mg/dL LDL Cholesterol, Calc (0-99) mg/dL HDL Cholesterol (40-60) mg/dL TSH (0.465-4.680) mIU/L Urine Blood Trace H (Negative) Ur Leukocyte Esterase Large H (Negative) Crossmatch 10/20/17 10/20/17 10/20/17 Range/Units 06:05 06:05 06:05 APTT 32.8 H (22.0-30.0) sec Chloride 111 H (98-107) mmol/L Carbon Dioxide 20 L (22-30) mmol/L Calcium 8.2 L (8.4-10.2) mg/dL AST 13 L (14-36) U/L Troponin I (0.000-0.034) ng/mL Total Protein 6.0 L (6.3-8.2) g/dL Albumin 3.0 L (3.5-5.0) g/dL Cholesterol 204 H (<200) mg/dL LDL Cholesterol, Calc 112 H (0-99) mg/dL HDL Cholesterol 63 H (40-60) mg/dL TSH 5.830 H (0.465-4.680) mIU/L Urine Blood (Negative) Ur Leukocyte Esterase (Negative) Crossmatch See Detail Microbiology - Last 24 Hours (Table) 10/19/17 17:30 Urine Culture - Preliminary Urine,Clean Catch 10/19/17 16:55 Nasal Screen MRSA/MSSA (LEDA) - Preliminary Nasal Swab Assessment and Plan Assessment: Assessment Coronary artery disease with anticipated bypass grafting on October 21. Catheterization revealed a left main stenosis of 80% and a patent RCA stent proximal LAD stenosis 100% PDA stenosis of 70% and circumflex artery stenosis of 80%. Ejection fraction by ventriculogram was 40%. Non-ST segment elevation myocardial infarction. History of lupus, currently on no medications History of angina Previous history of stent placement for CAD, right coronary artery. History of fibromyalgia History of GERD History of Sjogren syndrome History of Raynaud's disease Plan: The patient was seen and evaluated by Dr. Roche. She remains stable from the pulmonary standpoint. Bedside brenda pending. The plan is for coronary artery bypass grafting surgery tomorrow morning. She is again educated regarding the importance of the incentive spirometer and cough and deep breathing exercises. We'll continue to follow her throughout the postoperative period. I, the cosigning physician, performed a history & physical examination of the patient. Lungs sounds are clear. Maintaining good O2 saturations in the 90s on room air. I discussed the assessment and plan of care with my nurse practitioner, Kelly France. I attest to the above note as dictated by her.
[2017-10-20] MEDS: ASPIRIN 81 MG PO SCH (11:02)
[2017-10-20] MEDS: METOPROLOL TARTRATE 12.5 MG TAB PO SCH ×2 (11:02→22:14)
[2017-10-20] MEDS: MUPIROCIN 2% OINT 22 GM TUBE NASAL SCH ×2 (11:02→22:14)
--- NOTE | 2017-10-20 12:20 | P.PN ---
Subjective Progress Note Date: 10/20/17 Principal diagnosis: Coronary artery disease, non-ST segment elevation myocardial infarction this admission, family history of early onset of coronary artery disease with several family members dying before the age of 55, history of lupus, previous history of stent placement for coronary artery disease to her right coronary artery and left anterior descending coronary artery, history of fibromyalgia, history of lupus, GERD, history of Sjogren syndrome, history of renal disease, current nicotine abuse, depression, marijuana oil use, history of acute kidney injury without dialysis requirement and Raynauds disease. Patient is awake, alert and oriented. She denies any further complaints of chest pain or shortness of breath. Preoperative testing has been initiated and is being evaluated. She is using her incentive spirometry and achieving 2500 mL. Objective - Vital Signs Vital signs: Vital Signs Temp 97 F L 10/20/17 07:50 Pulse 77 10/20/17 11:00 Resp 16 10/20/17 11:00 BP 95/60 10/20/17 11:00 Pulse Ox 100 10/20/17 11:00 Intake & Output 10/19/17 10/20/17 10/20/17 18:59 06:59 18:59 Intake Total 1100.76 1089.240 Output Total 2 Balance 1100.76 1087.240 Weight 81.647 kg 85.4 kg Intake: IV 930 760 Heparin Sodium,Porcine/ 160 160 D5w Pmx 25,000 unit In Dextrose/Water 1 500ml. bag @ 12 UNITS/KG/HR 19. 59 mls/hr IV .Q24H [facility] Rx #:[id number] Sodium Chloride 0.9% 1, 600 600 000 ml @ 75 mls/hr IV . [id number] [facility] Rx#:[id number] Intake, IV Titration 170.76 329.240 Amount Heparin Sodium,Porcine/ 170.76 329.240 D5w Pmx 25,000 unit In Dextrose/Water 1 500ml. bag @ 12 UNITS/KG/HR 19. 59 mls/hr IV .Q24H [facility] Rx #:[id number] Output: Urine 2 Other: Voiding Method Toilet # Voids 2 1 - Constitutional General appearance: Present: cooperative, no acute distress, obese - Neck Details: No JVD, no lymphadenopathy, neck is supple. - Respiratory Details: Lung sounds are essentially clear throughout. Respirations are symmetrical and nonlabored. She is achieving 2500 mL on her incentive spirometry. Oxygen saturation are 97% on room air. - Cardiovascular Details: Regular rhythm and rate. S1 and S2 present, negative for S3, gallop or murmur. No edema present. Remote telemetry showing normal sinus rhythm heart rate 68. - Gastrointestinal Gastrointestinal Comment(s): Abdomen is soft, nontender nondistended. Active bowel sounds all 4 abdominal quadrants. Tolerating oral intake. - Genitourinary Genitourinary Comment(s): Voiding clear yellow urine. - Integumentary Integumentary Comment(s): Skin is warm and dry. No clubbing or cyanosis present. No rash or abnormal pigmentation present. - Neurologic Neurologic: Present: CNII-XII intact - Musculoskeletal Musculoskeletal: Present: gait normal, strength equal bilaterally - Psychiatric Psychiatric: Present: A&O x's 3, appropriate affect, intact judgment & insight - Allied health notes Allied health notes reviewed: nursing - Labs CBC & Chem 7: 10/20/17 06:05 10/20/17 06:05 Labs: Abnormal Lab Results - Last 24 Hours (Table) 10/19/17 10/19/17 10/20/17 Range/Units 14:54 17:30 01:40 APTT 44.8 H (22.0-30.0) sec Chloride (98-107) mmol/L Carbon Dioxide (22-30) mmol/L Calcium (8.4-10.2) mg/dL AST (14-36) U/L Troponin I 0.066 H* (0.000-0.034) ng/mL Total Protein (6.3-8.2) g/dL Albumin (3.5-5.0) g/dL Cholesterol (<200) mg/dL LDL Cholesterol, Calc (0-99) mg/dL HDL Cholesterol (40-60) mg/dL TSH (0.465-4.680) mIU/L Urine Blood Trace H (Negative) Ur Leukocyte Esterase Large H (Negative) Crossmatch 10/20/17 10/20/17 10/20/17 Range/Units 06:05 06:05 06:05 APTT 32.8 H (22.0-30.0) sec Chloride 111 H (98-107) mmol/L Carbon Dioxide 20 L (22-30) mmol/L Calcium 8.2 L (8.4-10.2) mg/dL AST 13 L (14-36) U/L Troponin I (0.000-0.034) ng/mL Total Protein 6.0 L (6.3-8.2) g/dL Albumin 3.0 L (3.5-5.0) g/dL Cholesterol 204 H (<200) mg/dL LDL Cholesterol, Calc 112 H (0-99) mg/dL HDL Cholesterol 63 H (40-60) mg/dL TSH 5.830 H (0.465-4.680) mIU/L Urine Blood (Negative) Ur Leukocyte Esterase (Negative) Crossmatch See Detail Microbiology - Last 24 Hours (Table) 10/19/17 17:30 Urine Culture - Preliminary Urine,Clean Catch 10/19/17 16:55 Nasal Screen MRSA/MSSA ([facility]) - Preliminary Nasal Swab - Imaging and Cardiology Chest x-ray: report reviewed, image reviewed Vein mapping results reviewed, radial artery study results reviewed. Carotid duplex study results reviewed. Assessment and Plan (1) Non-ST elevation (NSTEMI) myocardial infarction Current Visit: Yes Status: Acute Code(s): I21.4 - NON-ST ELEVATION (NSTEMI) MYOCARDIAL INFARCTION SNOMED Code(s): 015034189 (2) Coronary artery disease Current Visit: Yes Status: Chronic Code(s): I25.10 - ATHSCL HEART DISEASE OF [place] CORONARY ARTERY W/O ANG PCTRS SNOMED Code(s): 95278711 (3) Depression Current Visit: Yes Status: Chronic Code(s): F32.9 - MAJOR DEPRESSIVE DISORDER, SINGLE EPISODE, UNSPECIFIED SNOMED Code(s): 92230719 (4) Family history of premature coronary artery disease Current Visit: Yes Status: Chronic Code(s): Z82.49 - FAMILY HX OF ISCHEM HEART DIS AND OTH DIS OF THE CIRC SYS SNOMED Code(s): 717907970 (5) GERD (gastroesophageal reflux disease) Current Visit: Yes Status: Chronic Code(s): K21.9 - GASTRO-ESOPHAGEAL REFLUX DISEASE WITHOUT ESOPHAGITIS SNOMED Code(s): 239065818 (6) History of heart artery stent Current Visit: Yes Status: Chronic Code(s): Z95.5 - PRESENCE OF CORONARY ANGIOPLASTY IMPLANT AND GRAFT SNOMED Code(s): 897103405 (7) Hyperlipidemia Current Visit: Yes Status: Chronic Code(s): E78.5 - HYPERLIPIDEMIA, UNSPECIFIED SNOMED Code(s): 67407239 (8) Hypertension Current Visit: Yes Status: Chronic Code(s): I10 - ESSENTIAL (PRIMARY) HYPERTENSION SNOMED Code(s): 55978395 (9) Left main coronary artery disease Current Visit: Yes Status: Chronic Code(s): I25.10 - ATHSCL HEART DISEASE OF [place] CORONARY ARTERY W/O ANG PCTRS SNOMED Code(s): 702185035 (10) Lupus Current Visit: Yes Status: Chronic Code(s): L93.0 - DISCOID LUPUS ERYTHEMATOSUS SNOMED Code(s): 528057633 (11) Tobacco dependence Current Visit: Yes Status: Chronic Code(s): F17.200 - NICOTINE DEPENDENCE, UNSPECIFIED, UNCOMPLICATED SNOMED Code(s): 35631898 (12) History of kidney injury Current Visit: No Status: Resolved Code(s): Z87.828 - PERSONAL HISTORY OF OTH (HEALED) PHYSICAL INJURY AND TRAUMA SNOMED Code(s): 976250539 (13) Previous myocardial infarction older than 8 weeks Current Visit: No Status: Resolved Code(s): I25.2 - OLD MYOCARDIAL INFARCTION SNOMED Code(s): 0483122 (14) History of seizure disorder Current Visit: No Status: Resolved Code(s): Z86.69 - PERSONAL HISTORY OF DIS OF THE NERVOUS SYS AND SENSE ORGANS SNOMED Code(s): 409071220 (15) History of syncope Current Visit: No Status: Resolved Code(s): Z87.898 - PERSONAL HISTORY OF OTHER SPECIFIED CONDITIONS SNOMED Code(s): 683700422178075 Plan: Patient was seen and examined. Preoperative workup is in place. Preoperative teaching reinforced with patient. The importance of smoking cessation was discussed with the patient. 5 m walk test was completed, time 1:5.69 seconds, time 2: 5.32 seconds, time 3: 4.23 seconds. The patient is scheduled for myocardial revascularization surgery tomorrow 10/21/2017 to be performed by Dr. Terrence Mclaughlin. Time with Patient: Greater than 30
--- NOTE | 2017-10-20 16:24 | PN ---
PROGRESS NOTE This is a lady who underwent cardiac cath yesterday, has significant triple-vessel and left main disease going for surgery tomorrow. Echocardiogram was performed today. Ejection fraction is 45% with anteroapical hypokinesia. Ejection fraction is fairly well preserved. There is no significant mitral or tricuspid regurgitation and no significant pulmonary hypertension is noted. Vital signs stable. The right femoral cath site is clean and dry with a good pulse. S1, S2 heard normally. Lungs are clear. Abdomen and lower extremity exam is unchanged. MMODL / IJN: [id number] /
[2017-10-20 20:44] VITALS: TEMP 97.5
[2017-10-20] MEDS ORDERED: ATORVASTATIN 40 MG TAB PO SCH (21:00)
[2017-10-20] MEDS: PANTOPRAZOLE 40 MG TABLET PO SCH (22:13)
[2017-10-20] MEDS: LORazepam 0.5 MG TAB PO PRN (22:14)
[2017-10-20] MEDS: traZODone HCL 100 MG TAB PO SCH (22:14)
[2017-10-20] MEDS: TOPIRAMATE 100 MG TAB PO SCH (22:14)
[2017-10-20] MEDS: VENLAFAXINE HCL ER 150 MG CAP PO SCH (22:16)
--- NOTE | 2017-10-20 22:20 | P.PN ---
Subjective this is a pleasant 47 yo F with pmh of HTN, HLP, CAD, Fibromyalgia, seizure , GERD, HLP, syncope, Raynauds disease ,Sjogren's syndrome and Lupus but not on therapy who presents with signs and symptoms of chest pain of two days duration , the pain is central , associated with some dyspnea , pt was found to have positive troponin 0.6, 0.8,0.6 , pt was taking to cardiac cath today and it showed three vessel disease and main stem coronary art disease , and she might needs cath on Friday. pt currently denies any chest pain , no palpitation or dyspnea. pt does not have any fever. carotid doppler done: no significant stenosis, on 10/20/2017 pt is lying comfortable not in distress, no more chest pain , no dyspnea , no dizziness, pt had cardiac cath yesterday showing three vessel coronary a disease as well as left main stem stenosis , pt is scheduled for myocardial revascularization surgery Objective - Vital Signs Vital signs: Vital Signs Temp 97.5 F L 10/20/17 20:00 Pulse 78 10/20/17 20:00 Resp 16 10/20/17 20:00 BP 95/60 10/20/17 20:00 Pulse Ox 98 10/20/17 20:00 Intake & Output 10/20/17 10/20/17 10/21/17 06:59 18:59 06:59 Intake Total 1089.240 120 Output Total 2 Balance 1087.240 120 Weight 85.4 kg Intake: IV 760 Heparin Sodium,Porcine/ 160 D5w Pmx 25,000 unit In Dextrose/Water 1 500ml. bag @ 12 UNITS/KG/HR 19. 59 mls/hr IV .Q24H [facility] Rx #:[id number] Sodium Chloride 0.9% 1, 600 000 ml @ 75 mls/hr IV . [id number] [facility] Rx#:[id number] Intake, IV Titration 329.240 Amount Heparin Sodium,Porcine/ 329.240 D5w Pmx 25,000 unit In Dextrose/Water 1 500ml. bag @ 12 UNITS/KG/HR 19. 59 mls/hr IV .Q24H [facility] Rx #:[id number] Oral 120 Output: Urine 2 Other: Voiding Method Toilet Toilet Toilet # Voids 2 2 # Bowel Movements 0 - Exam GENERAL: The patient is alert and oriented x3, not in any acute distress. Well developed, well nourished. HEENT: Pupils are round and equally reacting to light. EOMI. No scleral icterus. No conjunctival pallor. Normocephalic, atraumatic. No pharyngeal erythema. No thyromegaly. CARDIOVASCULAR: S1 and S2 present. No murmurs, rubs, or gallops. PULMONARY: Chest is clear to auscultation, no wheezing or crackles. ABDOMEN: Soft, nontender, nondistended, normoactive bowel sounds. No palpable organomegaly. Small abdominal wall lump close to the umbilicus with a smooth borders and mobile, nontender MUSCULOSKELETAL: No joint swelling or deformity. EXTREMITIES: No cyanosis, clubbing, or pedal edema. -right femoral cath site; no signs of swelling or bleeding NEUROLOGICAL: Gross neurological examination did not reveal any focal deficits. SKIN: No rashes. - Labs CBC & Chem 7: 10/20/17 06:05 10/20/17 06:05 Labs: Abnormal Lab Results - Last 24 Hours (Table) 10/20/17 10/20/17 10/20/17 Range/Units 01:40 06:05 06:05 APTT 44.8 H (22.0-30.0) sec Chloride 111 H (98-107) mmol/L Carbon Dioxide 20 L (22-30) mmol/L Calcium 8.2 L (8.4-10.2) mg/dL AST 13 L (14-36) U/L Total Protein 6.0 L (6.3-8.2) g/dL Albumin 3.0 L (3.5-5.0) g/dL Cholesterol 204 H (<200) mg/dL LDL Cholesterol, Calc 112 H (0-99) mg/dL HDL Cholesterol 63 H (40-60) mg/dL TSH 5.830 H (0.465-4.680) mIU/L Crossmatch See Detail 10/20/17 10/20/17 Range/Units 06:05 14:31 APTT 32.8 H 54.0 H (22.0-30.0) sec Chloride (98-107) mmol/L Carbon Dioxide (22-30) mmol/L Calcium (8.4-10.2) mg/dL AST (14-36) U/L Total Protein (6.3-8.2) g/dL Albumin (3.5-5.0) g/dL Cholesterol (<200) mg/dL LDL Cholesterol, Calc (0-99) mg/dL HDL Cholesterol (40-60) mg/dL TSH (0.465-4.680) mIU/L Crossmatch Microbiology - Last 24 Hours (Table) 10/19/17 16:55 Nasal Screen MRSA/MSSA (LED[facility]) - Final Nasal Swab Staphylococcus aureus,Not MRSA 10/19/17 17:30 Urine Culture - Final Urine,Clean Catch Strep agalactiae - (group b) Assessment and Plan Assessment: -Non-STEMI, s/p cardiac cath -h/o CAD, with family h/o premature CAD -h/o Lupus -HTN -HLP -Fibromyalgia -seizure -GERD -HLP -syncope -Raynauds disease -Sjogren's syndrome Plan: pt to be admitted to the general medical floor,cardiology and pulmonary team evaluated the pt , pt was started on heprin drip and then she was taken to cardiac cath on 10/19 showing multiple vessel disease: left main a (80%), LAD( 100%), Circumflex a (80%), pt schedules for myocardial revascularization surgery on 10/21/17.consult with cardiovascular team is appreciated .monitor lytes and vitals, she is on metoprolol , asa and statin, c/w symptomatic treatment.c/w incentive spirometery. DVT and GI prophylaxis, counseled about quitting vape, she quit smoking many years ago. prognosis remains guarded
[2017-10-21 00:01] LABS: Glucose,Whole Blood 84 mg/dL (75-99)
[2017-10-21] MEDS ORDERED: NALOXONE 0.4 MG/ML 1 ML VIAL ONE (00:12)
[2017-10-21] MEDS ORDERED: LIDOCAINE 2% SYG (PF) 100 MG/5 ML ONE (00:20)
[2017-10-21] MEDS ORDERED: SODIUM BICARB 8.4% 50 ML SYR (1 MEQ/ML) ONE (00:20)
[2017-10-21] MEDS ORDERED: EPINEPHrine 10 ML SYRINGE (0.1 MG/ML) ONE (00:20)
[2017-10-21] MEDS ORDERED: MAGNESIUM SULFATE SYG 4.06 MEQ/ML SYRINGE ONE (00:20)
[2017-10-21 01:40] VITALS: BP 88/53; PULSE 79
--- NOTE | 2017-10-21 02:52 | ED ---
CPR HPI - General Chief Complaint: Chest Pain Stated Complaint: Chest Pain Time Seen by Provider: 10/19/17 02:30 Source: EMS Mode of arrival: EMS Limitations: no limitations - History of Present Illness Initial Comments: A CODE DELFINA was called on the floor at 12:02 AM Per nursing staff the patient had complained of worsening chest pain, she was given or seen and nitro around 11:15 PM and reported that her chest pain improved back to a 6/10 which is where it had been since her admission to the hospital. Around midnight the patient was reevaluated and found to be altered, hypoxic and hypotensive. A code was called. When I arrived to the room the patient was obtunded and unable to provide further history. All history was provided by the nursing staff and the patient' s medical record. - Related Data Home Medications Medication Instructions Recorded Confirmed LORazepam [Ativan] 0.5 mg PO TID PRN 10/19/17 10/19/17 Nitroglycerin [Nitroglycerin 1 spray TRANSLINGU DAILY PRN 10/19/17 10/19/17 400[facility] [place]] Pantoprazole Sodium [Protonix] 80 mg PO HS 10/19/17 10/19/17 Pilocarpine HCl [Salagen] 5 mg PO TID PRN 10/19/17 10/19/17 Topiramate [Topamax] 100 mg PO HS 10/19/17 10/19/17 Venlafaxine HCl ER [Effexor Xr] 150 mg PO HS 10/19/17 10/19/17 rOPINIRole HCL [Requip] 3 mg PO HS 10/19/17 10/19/17 traZODone HCL 300 mg PO HS 10/19/17 10/19/17 Allergies Allergy/AdvReac Type Severity Reaction Status Date / Time Penicillins Allergy Rash/Hives Verified 10/19/17 11:25 Review of Systems ROS Statement: Those systems with pertinent positive or pertinent negative responses have been documented in the HPI. Limitations: ROS unobtainable due to patients medical condition Cardiovascular: Reports: chest pain Gastrointestinal: Denies: vomiting Neurological: Reports: confusion Past Medical History Past Medical History: Coronary Artery Disease (CAD), Chest Pain / Angina, Fibromyalgia, GERD/Reflux, Hyperlipidemia, Hypertension, Myocardial Infarction ( [place]), Renal Disease, Seizure Disorder, Syncope Additional Past Medical History / Comment(s): Lupus, rhaynauds, Sjrogens syndrome, chronic pain, headaches, seizures & kidney failure in 1999 now resolved, HELPP syndrome during History of Any Multi-Drug Resistant Organisms: None Reported Past Surgical History: Heart Catheterization With Stent, Hernia Repair, Hysterectomy Additional Past Surgical History / Comment(s): 2009 2 stents to LAD, hysterectomy, double umbilical hernia repair, pin in right ankle, cyst removal on right ovary Past Anesthesia/Blood Transfusion Reactions: No Reported Reaction Date of Last Stent Placement:: 2009 Past Psychological History: Depression Smoking Status: Current every day smoker Past Alcohol Use History: None Reported Past Drug Use History: Marijuana Additional Drug Use History / Comment(s): Uses marijuana oil - Past Family History Mother Family Medical History: Diabetes Mellitus Father Family Medical History: Coronary Artery Disease (CAD) General Exam Limitations: no limitations General appearance: alert, obtunded Head exam: Present: atraumatic, normocephalic Eye exam: Present: PERRL ENT exam: Present: mucous membranes dry, other (Oral cyanosis) Respiratory exam: Absent: accessory muscle use Cardiovascular Exam: Present: regular rate, other (Weak radial pulses) GI/Abdominal exam: Present: soft. Absent: distended, tenderness Rectal exam: Present: deferred Extremities exam: Present: other (Delayed cap refill). Absent: pedal edema Neurological exam: Present: other (Obtunded, not following commands, no verbal response, GCS verbal 2, advised to, motor 4, GCS 8) Skin exam: Present: warm, dry, pallor Course Vital Signs 10/19/17 10/19/17 02:29 05:05 Temperature 100.0 F H 97.7 F Pulse Rate 77 77 Respiratory 18 18 Rate Blood Pressure 131/92 116/70 O2 Sat by Pulse 96 98 Oximetry Medical Decision Making - Medical Decision Making I arrived at the patient's bedside, patient he received a round of CPR, no medications, patient had pulses and was obtunded [id number] glucose 88 Patient noted to be hypotensive, she had weak radial pulses Patient noted to be hypoxic on monitor, considering her obtunded state and hypoxia decision was made to intubate the patient. Patient was intubated by the REVERSE ENGINEER. EKG was obtained which revealed a new right bundle branch block, widened QRS, significant changes which are suggestive of acute ischemia - STEMI doc was contacted swell his cardiothoracic surgery. Patient subsequently lost pulses and was resuscitated per ACLS protocols. She was initially PEA, CPR and epinephrine were given, patient obtained Ross but again quickly developed PEA arrest. She subsequently developed V. fib and was defibrillated multiple times. Family was noted of the critical change in the patient's condition, state that they are approximately one hour away but will drive to the hospital Patient care was discussed with STEMI doc on-call, EKG changes wereDiscussed. At this time he recommended continued coating per ACLS protocol and no further recommendations. Cardiothoracic surgery aware of the patient's code, recommend continued care. Admitting medical physician was advised of patient's status, agreed with treatment as it was progressing Patient was resuscitated with multiple rounds of epinephrine, sodium bicarb, magnesium, amiodarone and lidocaine, patient was also defibrillated multiple times. Despite these efforts Rosko was not obtained. Bedside cardiac ultrasound revealed no organized movement of the myocardium. Time of 12:49 AM 10/21/2017 - Lab Data Result diagrams: 10/20/17 06:05 10/20/17 06:05 Lab Results 10/19/17 Range/Units 02:48 Troponin I 0.065 H* (0.000-0.034) ng/mL Disposition Clinical Impression: Chest pain, Acute coronary syndrome Disposition: ADMITTED IP TO THIS HOSP Condition: Fair
[2017-10-21] MEDS ORDERED: PROPOFOL 1,000 MG in EMPTY BAG 1 BAG IV PRN (05:00)
[2017-10-21] MEDS ORDERED: ceFAZolin 1,000 MG in SODIUM CHLORIDE 0.9% IRRIGATIO 1,000 ML IRRIGATION PRN (05:00)
[2017-10-21] MEDS ORDERED: PHENYLEPHRINE 40 MG in SODIUM CHLORIDE 0.9% 250 ML IV PRN (05:00)
[2017-10-21] MEDS ORDERED: DEXTROSE 5% IN WATER 1,000 ML with POTASSIUM CHLORIDE 25 MEQ, SODIUM CHLORIDE 2.5MEQ/ML... IV PRN ×6 (05:00)
[2017-10-21] MEDS ORDERED: CHLORHEXIDINE GLUCONATE 15 ML CUP MUCOUS MEM PRN (05:00)
[2017-10-21] MEDS ORDERED: NOREPINEPHRIN 4 MG-0.9% NS PMX 4 MG/250 ML ML IV PRN (05:00)
[2017-10-21] MEDS ORDERED: ceFAZolin 2,000 MG in SODIUM CHLORIDE 0.9% 30 ML IVPB PRN (05:00)
[2017-10-21] MEDS ORDERED: PHENYLEPHRINE-0.9% NACL SYG 1 MG/10 ML SYRINGE IV PRN ×4 (05:00)
[2017-10-21] MEDS ORDERED: HEPARIN SODIUM,PORCINE 5,000 UNIT in SODIUM CHLORIDE 0.9% 500 ML IV PRN (05:00)
[2017-10-21] MEDS ORDERED: PROTAMINE SULFATE 10 MG/ML 25 ML VIAL IV PRN (05:00)
[2017-10-21] MEDS ORDERED: NITROGLYCERIN-D5W PMX 25 MG/250 ML BTL IV PRN (05:00)
[2017-10-21] MEDS ORDERED: PAPAVERINE 360 MG in SODIUM CHLORIDE 0.9% 90 ML IV PRN (05:00)
[2017-10-21] MEDS ORDERED: ASPIRIN 325 MG TAB PO ONE (05:00)
[2017-10-21] MEDS ORDERED: TRANEXAMIC ACID 2,000 MG in SODIUM CHLORIDE 0.9% 180 ML IV PRN (05:00)
[2017-10-21] MEDS ORDERED: ceFAZolin 2 GM in SODIUM CHLORIDE 0.9% 30 ML IVPB PRN (05:00)
[2017-10-21] MEDS ORDERED: DILTIAZEM 50 MG in SODIUM CHLORIDE 0.9% 40 ML IV PRN (05:00)
[2017-10-21] MEDS ORDERED: LACTATED RINGERS 1,000 ML IV PRN (05:00)
[2017-10-21] MEDS ORDERED: SODIUM BICARB 8.4% 50 ML SYR (1 MEQ/ML) IV PRN (05:00)
[2017-10-21] MEDS ORDERED: ALBUMIN HUMAN 5% 500 ML in EMPTY BAG 1 BAG IVPB PRN ×6 (05:00)
[2017-10-21] MEDS ORDERED: NITROGLYCERIN-D5W PMX 50 MG in DEXTROSE/WATER 1 250ML.BAG IV PRN (05:00)
[2017-10-21] MEDS ORDERED: PROTAMINE SULFATE 250 MG in EMPTY BAG 1 BAG IV PRN (05:00)
[2017-10-21] MEDS ORDERED: METOPROLOL TARTRATE 12.5 MG TAB PO ONE (05:00)
[2017-10-21] MEDS ORDERED: ALBUMIN HUMAN 25% 50 ML in EMPTY BAG 1 BAG IVPB PRN (05:00)
[2017-10-21] MEDS ORDERED: HEPARIN SODIUM 1,000 UN/ML (10ML VL) IV PRN (05:00)
[2017-10-21] MEDS ORDERED: CLEVIDIPINE BUTYRATE 25 MG in EMPTY BAG 1 BAG IV PRN (05:00)
[2017-10-21] MEDS ORDERED: CALCIUM CHLORIDE 100 MG/ML 10 ML SYRINGE IVP PRN (05:00)
[2017-10-21] MEDS ORDERED: MANNITOL 25% 12.5 GM/50 ML VIAL IV PRN ×2 (05:00)
[2017-10-21] MEDS ORDERED: MAGNESIUM SULFATE SYG 4.06 MEQ/ML SYRINGE IV PRN (05:00)
[2017-10-21] MEDS ORDERED: ATORVASTATIN 10 MG TAB PO ONE (05:00)
[2017-10-21] MEDS ORDERED: DEXTROSE 5% IN WATER 1,000 ML with POTASSIUM CHLORIDE 110 MEQ, MAGNESIUM SULFATE 16 MEQ... IV PRN ×5 (05:00)
[2017-10-21] MEDS ORDERED: INSULIN REGULAR 100 UNIT in SODIUM CHLORIDE 0.9% 100 ML IV PRN (05:00)
[2017-10-21] MEDS ORDERED: ASPIRIN 81 MG PO SCH (09:00)
[2017-10-21] MEDS ORDERED: METOPROLOL TARTRATE 12.5 MG TAB PO SCH (09:00)
--- NOTE | 2017-10-21 10:04 | PN ---
PROGRESS NOTE This lady was seen by me yesterday and she was scheduled to have open heart surgery today. However, during the night she . I spoke to her this morning by phone. I had a long discussion with him. I explained to him the fact that she had significant advanced CAD and that we were planning bypass surgery and the demise happened rather suddenly and was quite devastating for me also. I explained to him that the left main which was about 70% stenosed may have been the culprit lesion. When left main occludes with known LAD occlusion, the chance for survival is close to 0. The patient's seemed to be very understanding of this. Mr. Peng Dumont seemed to be handling this loss fairly well. They were for about 3 years, but he has had a long association with her prior to that. I explained to him that her clinical condition was hemodynamically stable, but she has significant disease and left main stenosis can sometimes abruptly cause occlusion and sudden . I explained to him that this was unexpected but also not preventable under the circumstances when this happened. He seemed to be very understanding of it and appreciated my phone call. CHITO / ERICKA: [id number] /
[2017-10-21 13:06] LABS: Hemoglobin A1C 5.3 % (4.0-6.0)
[2017-10-21 13:15] LABS: Hepatitis A Antibody IgM Non-Reactive (Non-Reactive); Hepatitis B Core IgM Non-Reactive (Non-Reactive)
[2017-10-21] MEDS ORDERED: ATORVASTATIN 40 MG TAB PO SCH (21:00)
--- NOTE | 2017-10-22 09:08 | P.VSCSTY ---
Greater Saphenous Vein Mapping This is bilateral lower extremity greater saphenous vein mapping. Date of service 10/20/2017 Vein quality and ultrasound appearance no visible thrombus or significant wall changes vein appears rather small for use as conduit at the ankle level.. Vein size groin right 5.2 x 5.0 groin left 5.7 x 6.0 High thigh right 5.7 x 5.2 high thigh left 4.5 x 4.7 Mid thigh right 4.3 x 4.0 mid thigh left 5.0 x 3.8 Above-knee right 3.0 x 3.3 above-knee left 3.7 x 3.7 Below knee right 3.8 x 2.9 below- knee left 3.6 x 3.6 Mid calf right 2.6 x 2.0 mid calf left 2.5 x 2.6 Ankle right 1.2 x 1.1 ankle left 1.7 x 1.3 Impression usable bilateral greater saphenous vein. Small at ankle.
--- NOTE | 2017-10-22 10:29 | ECHOF ---
Referral Reason:NSTEMI, going for CABG MEASUREMENTS -------- HEIGHT: 172.7 cm WEIGHT: 81.6 kg BP: RVIDd: 3.0 cm (< 3.3) IVSd: 1.3 cm (0.6 - 1.1) LVIDd: 4.1 cm (3.9 - 5.3) LVPWd: 1.4 cm (0.6 - 1.1) IVSs: 1.4 cm LVIDs: 2.9 cm LVPWs: 1.8 cm Ao Diam: 3.4 cm (2.0 - 3.7) AV Cusp: 2.4 cm (1.5 - 2.6) LA Diam: 3.9 cm (2.7 - 3.8) EPSS: 0.9 cm MV E Zeyad: 0.74 m/s MV DecT: 284 ms MV A Zeyad: 0.44 m/s MV E/A Ratio: 1.67 RAP: 5.00 mmHg RVSP: 23.66 mmHg MV EF SLOPE: 125.52 mm/s (70 - 150) MV EXCURSION: 1.50 cm (> 18.000) FINDINGS -------- Sinus rhythm. This was a technically difficult study with suboptimal views. The left ventricular size is normal. There is mild concentric left ventricular hypertrophy. Overa ll left ventricular systolic function is mild-moderately impaired with, an EF between 40 - 45 %. Ap ical anterior LV wall motion is hypokinetic. Apical inferior LV wall motion is hypokinetic. Api erasto septum LV wall motion is hypokinetic. XX ml of Lumason was utilized for enhancement of images. The aortic valve is trileaflet, and appears structurally normal. No aortic stenosis or regurgitation. Mild mitral regurgitation is present. CONCLUSIONS -------- 1. Sinus rhythm. 2. This was a technically difficult study with suboptimal views. 3. The left ventricular size is normal. 4. There is mild concentric left ventricular hypertrophy. 5. Overall left ventricular systolic function is mild-moderately impaired with, an EF between 40 - 45 %. 6. Apical anterior LV wall motion is hypokinetic. 7. Apical inferior LV wall motion is hypokinetic. 8. Apical septum LV wall motion is hypokinetic. 9. XX ml of Lumason was utilized for enhancement of images. 10. The aortic valve is trileaflet, and appears structurally normal. No aortic stenosis or regurgitat ion. 11. Mild mitral regurgitation is present. INSULATION INSTALLER: Parisa Ugrate RDCS
--- NOTE | 2017-10-22 11:01 | P.ARTDOP ---
Arterial Doppler LOWER EXTREMITY ARTERIAL DOPPLER: DATE OF SERVICE: 10/20/2017 Reason for study: Pre-CABG. Doppler waveforms: Multiphasic bilaterally throughout. Pulse volume recording: []. Pressure gradients: None. Ankle-brachial indices: Greater than 1 bilaterally. Toe pressures: [] on the right, [] on the left Impression: Normal study.
--- NOTE | 2017-10-22 11:03 | P.ARTDOP ---
Arterial Doppler Bilateral radial artery testing: On Doppler assessment we find no significant right to left or segmental pressure gradients. On digital plethysmography with radial artery compression the right could not be assessed due to an IV in the area. The left had pressure gradient of up to 68 mmHg with radial artery compression. Size of both radials was 2.5 mm or greater throughout. Radials not usable due to documented lack of collateralization.
== END 2017-10-21 05:00 | disposition expired ==
LOC: EC 02:20 → 6SEL 05:44
PROVIDERS: ADMIT Internal Medicine; ATTEND Internal Medicine
PROC: 4A023N7 Measurement of Cardiac Sampling and Pressure, Left Heart, Percutaneous Approach (ICD-10-PCS; principal; 2017-10-19 13:15)
PROC: B2151ZZ Fluoroscopy of Left Heart using Low Osmolar Contrast (ICD-10-PCS; principal; 2017-10-19 13:15)
PROC: B2111ZZ Fluoroscopy of Multiple Coronary Arteries using Low Osmolar Contrast (ICD-10-PCS; principal; 2017-10-19 13:15)
DX: I21.4 Non-ST elevation (NSTEMI) myocardial infarction (principal); R40.2224 Coma scale, best verbal response, incomprehensible words, 24 hours or more after hospital admission; R40.2344 Coma scale, best motor response, flexion withdrawal, 24 hours or more after hospital admission; R40.2124 Coma scale, eyes open, to pain, 24 hours or more after hospital admission; E78.5 Hyperlipidemia, unspecified; F17.200 Nicotine dependence, unspecified, uncomplicated; F32.9 Major depressive disorder, single episode, unspecified; G40.909 Epilepsy, unspecified, not intractable, without status epilepticus; G89.4 Chronic pain syndrome; I10 Essential (primary) hypertension; I25.10 Atherosclerotic heart disease of native coronary artery without angina pectoris; I25.2 Old myocardial infarction; I45.10 Unspecified right bundle-branch block; I46.9 Cardiac arrest, cause unspecified; I49.01 Ventricular fibrillation; I73.00 Raynaud's syndrome without gangrene; K21.9 Gastro-esophageal reflux disease without esophagitis; M32.9 Systemic lupus erythematosus, unspecified; M35.00 Sjogren syndrome, unspecified; M79.7 Fibromyalgia; R09.02 Hypoxemia; Z79.899 Other long term (current) drug therapy; Z81.8 Family history of other mental and behavioral disorders; Z82.49 Family history of ischemic heart disease and other diseases of the circulatory system; Z83.3 Family history of diabetes mellitus; Z90.710 Acquired absence of both cervix and uterus; Z95.5 Presence of coronary angioplasty implant and graft; Z88.0 Allergy status to penicillin
CPT/HCPCS: 36415; 71046; 80053; 80061; 80074; 81001; 82550; 82553; 83036; 83735; 84439; 84443; 84484; 85025; 85610; 85730; 86850; 86900; 86901; 86920; 87070; 87086; 92950; 93005; 93306; 93458; 93880; 93922; 93923; 93930; 93970; 94150; 96374; 99285